=== PATIENT | male | born 1990 | race Hispanic/Latino ===

== ENCOUNTER 2022-01-02 09:32 | Emergency (ER) | payer BC, SELFPAY ==
[2022-01-02 09:51] VITALS: BP 99/77; PULSE 93; RESP 16; TEMP 37.7; O2SAT 100
--- NOTE | 2022-01-02 10:12 | ED.SKABFB ---
HPI - Skin/Abscess/Foreign Bdy General Chief complaint: Skin/Abscess/Foreign Body Stated complaint: Rash on Entire Body Time Seen by Provider: 01/02/22 10:13 History of Present Illness HPI narrative: Aidan Fernandez is a 31 yo male with no PMH who comes to express care with a generalized rash. Denies contact with anything cause rash. started Wed Related Data Allergies Allergy/AdvReac Type Severity Reaction Status Date / Time No Known Allergies Allergy Verified 01/02/22 10:01 Review of Systems Review of Systems: CONSTITUTIONAL: Denies fever, chills, sweats. EYES: Denies visual changes, redness, discharge. ENT: Denies rhinorrhea, congestion, sore throat, otalgia. CARDIOVASCULAR: Denies chest pain, palpitations, edema. RESPIRATORY: Denies dyspnea, wheezing, cough GASTROINTESTINAL: Denies abdominal pain, nausea, vomiting, diarrhea. GENITOURINARY: Denies dysuria, hematuria, abnormal discharge SKIN: Denies rash or itching. NEUROLOGIC: Denies numbness, or focal weakness. PSYCHIATRIC: Denies anxiety or depression. [facility] Social History Social History (Updated 01/02/22 @ 10:29 by Claudia Aponte CNP) Smoking status: Current some day smoker Tobacco type: cigarettes Alcohol intake: current Exam Narrative: GENERAL: This is a well-nourished, well-developed patient, in mild distress. HEAD: normocephalic, atraumatic. EYES: Sclera clear/white. Vision is grossly intact. EARS: External ears normal, a Hearing grossly intact. NOSE: External nose normal without nasal discharge, nares without redness, no rhinorrhea. THROAT: Mucous membranes moist, no edema of mouth NECK: Neck supple, non-tender CARDIOVASCULAR: Regular rate and rhythm without murmurs, gallops, or rubs. RESPIRATORY: Clear to auscultation. Breath sounds equal bilaterally. No wheezes, rales, or rhonchi. GASTROINTESTINAL: not done SKIN: warm, intact with erythematous pruritic rash on chest arms hands legs NEURO: awake, alert, and oriented to person, place and time. There were no obvious focal neurologic abnormalities. Steady gait EXTREMITIES: Normal range of motion. BACK: Nontender without deformity Course Course Emergency Course: Patient comes with a rash started on Wednesday Given Solu-Medrol 125 here Prednisone taper back, famotidine. Benadryl Level of Care: Express Care Visit Vital Signs Vital signs: Vital Signs Temperature 99.8 F H 01/02/22 09:51 Pulse Rate 93 01/02/22 09:51 Respiratory Rate 16 01/02/22 09:51 Blood Pressure 99/77 L 01/02/22 09:51 Pulse Oximetry 100 01/02/22 09:51 Oxygen Delivery Room Air 01/02/22 09:51 Temperature 99.8 F H 01/02/22 09:51 Pulse Rate 93 01/02/22 09:51 Respiratory Rate 16 01/02/22 09:51 Blood Pressure 99/77 L 01/02/22 09:51 Pulse Oximetry 100 01/02/22 09:51 Oxygen Delivery Room Air 01/02/22 09:51 MDM - Skin/Abscess/Foreign Bdy Differential Diagnosis Differential diagnosis: Likely urticaria, cellulitis, insect bites, contact dermatitis and other Critical Care Time Critical Care Time Critical Care Time: No Discharge Plan Discharge Clinical Impression: Contact dermatitis Qualifiers: Contact dermatitis type: allergic Contact dermatitis trigger: non-food plants Qualified Code(s): L23.7 - Allergic contact dermatitis due to plants, except food Patient Disposition: Home, Self-Care Condition: Stable Instructions: Contact Dermatitis (DC) Additional Instructions: Take steroids in the morning, use famotidine 20 mg twice a day and Benadryl 25 mg twice a day Prescriptions: New methylprednisolone [Medrol (Ghulam)] 4 mg tablets,dose pack See Rx Instructions .ROUTE .COMPLEX Qty: 21 0RF Rx Instructions: orally per package directions famotidine 20 mg tablet 20 mg PO BID Qty: 14 0RF diphenhydramine HCl [Benadryl] 25 mg capsule 25 mg PO BID PRN (Reason: allergic reaction) Qty: 20 0RF Follow-up/Referrals: 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
[2022-01-02] MEDS: methylPREDNISolone SOD SUCC 125 MG VIAL IM (10:42)
== END 2022-01-02 10:52 | disposition home or self-care (01) ==
PROVIDERS: Emergency Provider Nurse Practitioner
DX: L23.7 Allergic contact dermatitis due to plants, except food (principal); F17.210 Nicotine dependence, cigarettes, uncomplicated
CPT/HCPCS: 96372; 99203; G0463; J2930